=== PATIENT | female | born 1945 | race Caucasian/White ===

== ENCOUNTER 2017-02-07 16:45 | Emergency (ER) | payer OTHER ==
[~2017-02-07] VITALS: Ht 167.6 cm; Wt 56.5 kg
[~2017-02-07 16:45] MED LIST: ALPRAZOLAM0.25 MG; AMBIEN10 M1; AMBIEN10 MG PO; ANASTROZOLE1 MG; FLONASE16 G1 BOTH NARES; MELOXICAM15 MG; OMEPRAZOLE20 M3; TRAMADOL HCL50 MG; TRAZODONE HCL50 MG PO; ULTRAM50 MG PO; VITAMIN D2000 UNIT; XANAX0.25 MG PO
[2017-02-07 17:16] LABS: HEMATOCRIT 46.5 % (36.0-46.0); MCH 31.6 PG (29.0-34.0); MCHC 32.9 G/DL (30.0-36.0); MCV 96.1 FL (83-99); MEAN PLAT.VOLUME 9.4 uM^3 (9.5-12.4); PLATELET COUNT 307 K/uL (156-360); RBC DIS.WIDTH-CV 13.4 % (11.8-14.6); RBC DIS.WIDTH-SD 47.7 % (39-53); RED BLOOD COUNT 4.84 M/uL (3.80-5.20); WHITE BLOOD COUNT 7.2 K/uL (4.1-10.2)
[2017-02-07 17:34] LABS: CHLORIDE 105 mEq/L (99-109); POTASSIUM 3.9 mEq/L (3.7-5.4); SODIUM 140 mEq/L (136-147)
[2017-02-07 17:37] LABS: GLUCOSE 92 mg/dL (70-99)
[2017-02-07 17:38] LABS: ANION GAP 9 MEQ/L (2-14)
[2017-02-07 17:39] LABS: TOTAL BILIRUBIN 0.2 mg/dL (0.0-1.0)
[2017-02-07 17:40] LABS: ALKALINE PHOSPHATASE 57 IU/L (3-129); GFR ESTIMATE (CALCULATED) > 59 mL/min/
[2017-02-07 17:41] LABS: UREA NITROGEN (BUN) 10 mg/dL (9-23)
[2017-02-07 17:44] LABS: LIPASE 31 U/L (1.0-51.0)
[2017-02-07 17:52] LABS: ADD MIUA? YES; BILIRUBIN NEGATIVE; BLOOD SMALL; COLOR STRAW ((YELLOW)); GLUCOSE (STRIP) NEGATIVE; KETONES NEGATIVE; LEUKOCYTES NEGATIVE; NITRITE NEGATIVE; PROTEIN (STRIP) NEGATIVE; SPECIFIC GRAVITY 1.003 (1.000-1.030); UROBILINOGEN 0.2 MG/DL (0.2-1.0)
[2017-02-07 18:02] LABS: BACTERIA RARE /HPF; EPITHELIAL CELLS RARE /HPF; MUCUS NONE SEEN /LPF; RED BLOOD CELLS 0-5 /HPF (0-5); UCUL ADDED? NO; WHITE BLOOD CELLS 0-5 /HPF (0-5)
[2017-02-07 19:55] LABS: TROP-I INTERPRETATION NEGATIVE; TROPONIN-I < 0.01 ng/mL (0.0-0.30)
[2017-02-07] MEDS ORDERED: OXAYDO5 MG PO (20:55)
[2017-02-07 21:07] VITALS: BP 137/68
== END 2017-02-07 21:09 | disposition home or self-care (01) ==
LOC: EME 16:45
PROVIDERS: Emergency Medicine
DX: N28.89 Other specified disorders of kidney and ureter (principal); R10.84 Generalized abdominal pain; R30.0 Dysuria; M79.7 Fibromyalgia; Z85.3 Personal history of malignant neoplasm of breast; Z90.13 Acquired absence of bilateral breasts and nipples; F17.200 Nicotine dependence, unspecified, uncomplicated
CPT/HCPCS: 74000; 74177; 80053; 81003; 83690; 84443; 84484; 85027; 93005; 99281; 99284; J7030

== ENCOUNTER → 2017-04-17 | Outpatient (CLI) | payer OTHER ==
[~2017-04-17] VITALS: Ht 167.6 cm; Wt 54.4 kg
[~2017-04-17] MED LIST changes: +OXAYDO5 MG PO
[2017-04-17 08:36] LABS: HEMATOCRIT 38.7 % (36.0-46.0); MCH 32.4 PG (29.0-34.0); MCHC 34.1 G/DL (30.0-36.0); MCV 94.9 FL (83-99); MEAN PLAT.VOLUME 9.4 uM^3 (9.5-12.4); PLATELET COUNT 244 K/uL (156-360); RBC DIS.WIDTH-CV 13.3 % (11.8-14.6); RBC DIS.WIDTH-SD 46.5 % (39-53); RED BLOOD COUNT 4.08 M/uL (3.80-5.20); WHITE BLOOD COUNT 4.2 K/uL (4.1-10.2)
[2017-04-17 08:50] LABS: PTT 30.8 SEC (25-37)
== END | disposition home or self-care (01) ==
LOC: OPR 07:51 → EDSTATUS 08:00
PROVIDERS: Urology
PROC: 0TB13ZX Excision of Left Kidney, Percutaneous Approach, Diagnostic (ICD-10-PCS; principal; 2017-04-17)
DX: N28.89 Other specified disorders of kidney and ureter (principal); Z85.3 Personal history of malignant neoplasm of breast; Z90.710 Acquired absence of both cervix and uterus; Z90.13 Acquired absence of bilateral breasts and nipples; Z92.21 Personal history of antineoplastic chemotherapy; K21.9 Gastro-esophageal reflux disease without esophagitis; F17.210 Nicotine dependence, cigarettes, uncomplicated; Z80.3 Family history of malignant neoplasm of breast
CPT/HCPCS: 77012; 85027; 85610; 85730; 88305; 88341 TC; 88342 TC; J3010

== ENCOUNTER 2017-06-07 20:52 | Inpatient (IN) | payer OTHER ==
[~2017-06-07] VITALS: Ht 165.1 cm; Wt 55.3 kg
[~2017-06-07 20:52] MED LIST changes: +MAGNESIUM CITR100 MG PO
[2017-06-08 06:17] VITALS: BP 110/59
[2017-06-08] MEDS ORDERED: ENDOCET 5-3251 EACH PO (11:46)
[2017-06-08] MEDS ORDERED: DOCUSATE SODIU100 MG PO (11:46)
[2017-06-08 13:19] LABS: HEMATOCRIT 32.9 % (36.0-46.0); MCH 32.6 PG (29.0-34.0); MCHC 33.1 G/DL (30.0-36.0); MCV 98.5 FL (83-99); MEAN PLAT.VOLUME 9.3 uM^3 (9.5-12.4); PLATELET COUNT 230 K/uL (156-360); RBC DIS.WIDTH-CV 13.8 % (11.8-14.6); RBC DIS.WIDTH-SD 50.4 % (39-53); RED BLOOD COUNT 3.34 M/uL (3.80-5.20); WHITE BLOOD COUNT 17.2 K/uL (4.1-10.2)
[2017-06-08 13:44] LABS: ANION GAP 5 MEQ/L (2-14); CHLORIDE 105 MEQ/L (99-109); GFR ESTIMATE (CALCULATED) > 59 mL/min/; GLUCOSE 135 mg/dL (70-99); POTASSIUM 3.7 MEQ/L (3.7-5.4); SAMPLE HEMOLYSIS CHECK 0; SAMPLE ICTERIC CHECK 0; SAMPLE LIPEMIA CHECK 0; SODIUM 137 MEQ/L (136-147); UREA NITROGEN (BUN) 9 mg/dL (9-23)
[2017-06-08 14:18] VITALS: BP 99/51
[2017-06-08 16:54] VITALS: BP 101/50
[2017-06-08 21:15] VITALS: BP 114/56
[2017-06-09] VITALS (7 sets, daily range): BP systolic 100–127; BP diastolic 54–83
[2017-06-09 08:35] LABS: HEMATOCRIT 29.1 % (36.0-46.0); MCH 32.3 PG (29.0-34.0); MEAN PLAT.VOLUME 9.4 uM^3 (9.5-12.4); PLATELET COUNT 203 K/uL (156-360); RBC DIS.WIDTH-CV 13.9 % (11.8-14.6); RBC DIS.WIDTH-SD 50.1 % (39-53); RED BLOOD COUNT 2.97 M/uL (3.80-5.20); WHITE BLOOD COUNT 11.5 K/uL (4.1-10.2)
[2017-06-09 09:01] LABS: ANION GAP 4 MEQ/L (2-14); CHLORIDE 104 MEQ/L (99-109); GFR ESTIMATE (CALCULATED) > 59 mL/min/; POTASSIUM 4.2 MEQ/L (3.7-5.4); SAMPLE HEMOLYSIS CHECK 0; SAMPLE ICTERIC CHECK 0; SAMPLE LIPEMIA CHECK 0; SODIUM 138 MEQ/L (136-147); UREA NITROGEN (BUN) 7 mg/dL (9-23)
[2017-06-09 09:04] LABS: GLUCOSE 90 mg/dL (70-99)
[2017-06-10 03:45] VITALS: BP 107/68
[2017-06-10 07:09] LABS: HEMATOCRIT 27.4 % (36.0-46.0); MCH 32.6 PG (29.0-34.0); MCHC 33.2 G/DL (30.0-36.0); MCV 98.2 FL (83-99); MEAN PLAT.VOLUME 10.1 uM^3 (9.5-12.4); PLATELET COUNT 202 K/uL (156-360); RBC DIS.WIDTH-SD 50.4 % (39-53); RED BLOOD COUNT 2.79 M/uL (3.80-5.20)
[2017-06-10 07:32] LABS: ANION GAP 5 MEQ/L (2-14); CHLORIDE 103 MEQ/L (99-109); GFR ESTIMATE (CALCULATED) > 59 mL/min/; GLUCOSE 100 mg/dL (70-99); POTASSIUM 3.8 MEQ/L (3.7-5.4); SAMPLE HEMOLYSIS CHECK 0; SAMPLE ICTERIC CHECK 0; SAMPLE LIPEMIA CHECK 0; SODIUM 140 MEQ/L (136-147); UREA NITROGEN (BUN) 6 mg/dL (9-23)
[2017-06-10 07:40] VITALS: BP 121/56
[2017-06-10 11:39] VITALS: BP 118/62
[2017-06-10 15:52] VITALS: BP 130/60
[2017-06-11 00:04] VITALS: BP 132/61
[2017-06-11 05:21] VITALS: BP 113/55
[2017-06-11 06:53] LABS: HEMATOCRIT 24.5 % (36.0-46.0); MCH 32.7 PG (29.0-34.0); MCHC 33.5 G/DL (30.0-36.0); MCV 97.6 FL (83-99); MEAN PLAT.VOLUME 9.9 uM^3 (9.5-12.4); PLATELET COUNT 198 K/uL (156-360); RBC DIS.WIDTH-CV 14.2 % (11.8-14.6); RBC DIS.WIDTH-SD 50.7 % (39-53); RED BLOOD COUNT 2.51 M/uL (3.80-5.20); WHITE BLOOD COUNT 9.1 K/uL (4.1-10.2)
[2017-06-11 07:16] LABS: ANION GAP 8 MEQ/L (2-14); CHLORIDE 110 MEQ/L (99-109); GFR ESTIMATE (CALCULATED) > 59 mL/min/; GLUCOSE 85 mg/dL (70-99); POTASSIUM 3.6 MEQ/L (3.7-5.4); SAMPLE HEMOLYSIS CHECK 0; SAMPLE ICTERIC CHECK 0; SAMPLE LIPEMIA CHECK 0; SODIUM 143 MEQ/L (136-147); UREA NITROGEN (BUN) 7 mg/dL (9-23)
[2017-06-11 08:05] VITALS: BP 108/52
== END 2017-06-11 15:47 | disposition home or self-care (01) | DRG 657 ==
LOC: 2SOUTH → ENRESERV 20:52 → 2SOUTH 06-08 05:30 → ENRESERV 06-08 08:09 → 2SOUTH 06-08 08:49 → 5EAST 06-08 13:42 → 2SOUTH 06-08 15:44 → ENPENDDIS 06-11 → 5EAST 06-11 15:47
PROVIDERS: Urology
PROC: 0TB10ZZ Excision of Left Kidney, Open Approach (ICD-10-PCS; principal; 2017-06-08)
DX: C64.2 Malignant neoplasm of left kidney, except renal pelvis (principal); D62 Acute posthemorrhagic anemia; C77.3 Secondary and unspecified malignant neoplasm of axilla and upper limb lymph nodes; Z68.1 Body mass index [BMI] 19.9 or less, adult; G47.00 Insomnia, unspecified; K21.9 Gastro-esophageal reflux disease without esophagitis; M79.7 Fibromyalgia; F17.210 Nicotine dependence, cigarettes, uncomplicated; J30.2 Other seasonal allergic rhinitis; Z88.5 Allergy status to narcotic agent; Z85.3 Personal history of malignant neoplasm of breast; Z90.13 Acquired absence of bilateral breasts and nipples; Z90.5 Acquired absence of kidney; Z90.710 Acquired absence of both cervix and uterus; Z92.21 Personal history of antineoplastic chemotherapy; Z60.2 Problems related to living alone; Z80.3 Family history of malignant neoplasm of breast
CPT/HCPCS: 80048; 85027; 86850; 86900; 86901; 88307; 88331; 88341 TC; 88342 TC; 94799; J0131; J0690; J1170; J2150; J2250; J2405; J2710; J3010; J7050; J7120; S0020